=== PATIENT | male | born 2005 | race Caucasian/White ===

== ENCOUNTER 2023-01-31 20:41 | Emergency (ER) | payer MEDICAID ==
[~2023-01-31] VITALS: Ht 185.4 cm; Wt 83.9 kg
[2023-01-31 21:51] VITALS: BP 139/74; PULSE 60; RESP 20; TEMP 98; O2SAT 98
[2023-01-31] MEDS ORDERED: NAPR-54 PO (23:33)
== END 2023-01-31 23:34 | disposition home or self-care (01) ==
LOC: MED 20:41
DX: S83.92XA Sprain of unspecified site of left knee, initial encounter (principal); Z79.1 Long term (current) use of non-steroidal anti-inflammatories (NSAID); W05.1XXA Fall from non-moving nonmotorized scooter, initial encounter; Y93.89 Activity, other specified; Y92.410 Unspecified street and highway as the place of occurrence of the external cause; Y99.8 Other external cause status
CPT/HCPCS: 73560; 99283